=== PATIENT | male | born 1970 | race Caucasian/White ===

== ENCOUNTER → 2017-04-03 | Outpatient (CLI) | payer OTHER ==
[~2017-04-03] VITALS: Ht 172.7 cm; Wt 83.9 kg
[~2017-04-03] MED LIST: ACYCLOVIR 400400 MG PO; MEDROLDOSEPACK PO; NOHOMEMEDICATIONS PO; NORFLEX100 MG PO; ZANAFLEX4 MG PO
--- NOTE | ~2017-04-03 | HPC ---
[facility] [address] [place] [address] PAIN MANAGEMENT CONSULTATION Name: SPENCER CUELLAR Room #: REG [facility].#: [id number] Admission: 04/03/17 Attend Phys: Artur Matson DO Discharge: Date of : 70 Report #: [id number] THIS REPORT FOR: //name// CC: Cary Matson DATE OF SERVICE: 04/03/2017 REFERRING PHYSICIAN: Cary Roberts MD CHIEF COMPLAINT: Low back pain, left lower extremity pain and paresthesias. HISTORY OF PRESENT ILLNESS: As you know, the patient is a very pleasant 46-year-old male with longstanding history of low back pain, left lower extremity pain and paresthesias. The patient indicates pain began spontaneously in November 2016. He denies injury or trauma that may have led to symptoms. He has had previous low back symptoms, but this typically resolved in 3 days, pain continued to worsen and then began to experience radiation down the left leg all the way to the foot. He has sought evaluation through his primary care physician, Dr. Cary Roberts, ultimately be sent for physical therapy, he has done one month physical therapy, but yet has noted only minor improvement in symptoms. The patient did received Medrol Dosepak for suspected lumbar radiculopathy and this did improve the patient's symptoms quite rapidly. He continues to experience pain and ultimately underwent MRI of the lumbar spine, which shows changes at the L5-S1 level significant enough that he was referred to our clinic to discuss treatment options. The patient indicates pain is periodic, momentary and intermittent, describes pain as burning, shooting, aching, numbness and tingling, places current pain score at 1-2/10, daily average of 2/10, worst pain has been is 9/10. The patient states that standing from a seated position, lying down, repositioning, sneezing, coughing or lifting exacerbates symptoms, lying down and repositioning is the only thing he has found to improve pain other than the Medrol Dosepak. He has been referred to our clinic to discuss options for treatments for suspected lumbar radiculopathy. PAST MEDICAL HISTORY: None. PAST SURGICAL HISTORY: None. SOCIAL HISTORY: The patient denies tobacco, IV or illicit drug use, admits to approximately 6 alcoholic beverages per week. He is a software program manager, he is working, not receiving workmen's compensation nor is he trying to obtain disability benefits. He is not in litigation in regards to his pain. He is unaccompanied today. REVIEW OF SYSTEMS: Positive for decreased appetite, night sweats, low back [address] [address] PAIN MANAGEMENT CONSULTATION Name: SPENCER CUELLAR [id number] Admission: 04/03/17 Attend Phys: Artur Matson DO Discharge: Date of : 70 Report #: [id number] pain, left lower extremity pain and paresthesias. All other review of systems negative per 12-point review of systems other than those listed in history of present illness. PAIN IMPACT SCORE: 15/70 indicating mild interference of daily activities secondary to pain. ALLERGIES: No known drug allergies. CURRENT MEDICATIONS: None. IMAGING: MRI lumbar spine obtained on 03/07/2017, shows L1-L2, L2-L3, and L3-L4 unremarkable. No significant central disk bulge, no central canal stenosis, no neural foraminal stenosis. L4-L5 shows disk bulge, central disk protrusion causing ventral indentation of the thecal sac in conjunction with facet hypertrophy/ligamentum flavum hypertrophy causing [id number] central canal stenosis. L5-S1, disk bulge, left paracentral disk extrusion causing compression and displacement of the left S1 nerve root, extending adjacent to the proximal left neural foramen with mild foraminal narrowing, extruded disk fragment measures 1.2 cm in diameter, left anterior lateral distortion of the thecal sac is noted. PHYSICAL EXAMINATION: VITAL SIGNS: Blood pressure 128/92, pulse 90, respiratory rate 16 and unlabored, the patient is 100% on room air, height 5 feet 8 inches tall, weight 185 pounds, and BMI calculated 28.1. GENERAL: Well-developed, well-nourished, well-hydrated 46-year-old male, appearing his stated age, he is placing current pain score at 1-2/10. HEENT: Normocephalic, atraumatic. Pupils are equal, round, and reactive to light. Extraocular muscles are intact. Sclerae are nonicteric without injection. NEUROLOGIC: Cranial nerves 2-12 are grossly intact. Speech is fluent. The patient deemed a good historian. LUNGS: Clear. No wheeze, rhonchi, or rales. CARDIOVASCULAR: Regular. No appreciable gallop or rub. ABDOMEN: Soft, nontender, and nondistended. Normoactive bowel sounds. EXTREMITIES: Show no clubbing, no cyanosis, and no edema. MUSCULOSKELETAL: Lower extremity strength appears equal and symmetrical 5/5, muscle bulk and tone equal and symmetrical in lower extremities. Seated straight leg raising negative. Supine straight leg raising positive on the left with S1 distribution. Ankle clonus negative. Babinski is negative. Deep tendon reflexes are symmetrical at patella and Achilles. Gait mildly antalgic favoring left lower extremity over right. Lumbar provocation testing causes mild increase in axial back pain, no radiation of symptoms. ASSESSMENT: [facility] [address] [place] [address] PAIN MANAGEMENT CONSULTATION Name: SPENCER CUELLAR Room #: REG [facility].#: [id number] Admission: 04/03/17 Attend Phys: Artur Matson DO Discharge: Date of : 70 Report #: [id number] 1. Symptomatic lumbar radiculopathy. 2. Displacement of lumbar intervertebral disk with radiculopathy. 3. Lumbosacral spondylosis with radiculopathy. 4. Spinal stenosis of lumbar spine. 5. Degeneration of lumbar spine. 6. Chronic intractable pain. PLAN: 1. Based on today's physical exam, history the patient has provided, the description the patient uses in regards to pain as well as location of symptoms and the findings on MRI, the likely source of the patient's pain is a lumbar radiculopathy. The patient displays S1 left-sided dermatomal distribution of pain today during physical exam. We discussed with the patient treatment options for lumbar radiculopathy secondary to the findings of the MRI at L5-S1 level with the extruded disk causing lateral recess stenosis. We discussed the following with the patient the treatment options that are available. The patient and I did discuss physical therapy, stretching exercises, core strengthening as a treatment option, the patient has been involved in physical therapy for nearly a month and is noticing some improvement, but no longstanding efficacy. We can continue this as an option for treatment. We discussed medication therapy with the addition of a neuropathic pain medication and consistent nonsteroidal anti-inflammatory. We discussed lumbar epidural injections for which the patient was referred to our clinic, spinal cord stimulator therapy and surgical options. After reviewing the risks and benefits of all the proposed treatment options, the patient requested a lumbar epidural injection under fluoroscopic guidance. 2. The patient was advised that third republican payer restrictions require that authorization be obtained before the patient could undergo the first in a series of epidural injections. The patient was advised this will take anywhere from 4-7 working days, we will begin the process immediately and we will contact the patient once preauthorization has been obtained for the patient to undergo epidural injection per the primary care's request. The patient was advised once authorization has been obtained, we will then contact the patient to schedule him back for the next or first available appointment for the patient to undergo epidural injection. 3. No medication changes were made at today's visit. The patient will continue current medical therapy as previously prescribed. 4. We will see the patient back in followup visit once we have achieved precertification to undergo epidural injection under fluoroscopic guidance. 5. We wish to thank Dr. Roberts for the referral of this patient to our clinic. We will keep you apprised of his response to treatment [place] [address] PAIN MANAGEMENT CONSULTATION Name: SPENCER CUELLAR Room #: REG [facility]#: [id number] Admission: 04/03/17 Attend Phys: Artur Matson DO Discharge: Date of : 70 Report #: [id number] lumbar radicular symptoms. Again, we wish to thank you for the opportunity to see the patient in consultation. <ELECTRONICALLY SIGNED> By: Artur Matson DO 04/04/17 [id number] Artur Matson DO /nt
[2017-04-03 08:58] VITALS: BP 128/92
== END | disposition home or self-care (01) ==
LOC: PAIN 07:10
DX: M51.16 Intervertebral disc disorders with radiculopathy, lumbar region (principal); M48.06 Spinal stenosis, lumbar region; M47.27 Other spondylosis with radiculopathy, lumbosacral region; G89.29 Other chronic pain

== ENCOUNTER → 2017-04-10 | Outpatient (CLI) | payer OTHER ==
[~2017-04-10] VITALS: Ht 172.7 cm; Wt 82.7 kg
--- NOTE | ~2017-04-10 | HPC ---
[facility] [address] [place] [address] PAIN MANAGEMENT CONSULTATION Name: SPENCER CUELLAR Room #: REG [facility].#: [id number] Admission: 04/10/17 Attend Phys: Artur Matson DO Discharge: Date of : 70 Report #: [id number] THIS REPORT FOR: //name// CC: Cary Matson DATE OF SERVICE: 04/10/2017 REFERRING PHYSICIAN: Cary Roberts MD CHIEF COMPLAINT: Low back pain, left lower extremity pain and paresthesias. HISTORY OF PRESENT ILLNESS: As you know, the patient is a very pleasant 46-year-old male with longstanding history of low back pain, left lower extremity pain and paresthesias, the patient indicates pain began in November 2016, denies injury or trauma that may have led to symptom development. The patient trialed conservative medical therapy, unfortunately failed from a standpoint of improvement, he was subsequently referred to our clinic. We addressed his findings of his imaging study and how it correlates to his ongoing symptoms, we attempted a preauthorization for epidural injection. We have received this preauthorization and he returns today to undergo the procedure itself. He states pain level of 3/10, states his pain is sharp, aching, burning, numbness, and tingling and exacerbated with standing, walking and bending, improves with heat, position and medications. He returns today for the first in a series of epidural injections. ALLERGIES: No known drug allergies. CURRENT MEDICATIONS: None. SOCIAL HISTORY: The patient denies tobacco, IV or illicit drug use, admits to approximately 6 alcoholic beverages per week. 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 PHYSICAL EXAMINATION: VITAL SIGNS: Blood pressure 141/92, pulse 97, respiratory rate 12 and unlabored, the patient is 99% on room air, height 5 feet 8 inches tall, weight 182.4 pounds, and BMI calculated 27.7. GENERAL: Well-developed, well-nourished, well-hydrated 46-year-old male, appearing stated age, placing current pain score 3/10. HEENT: Normocephalic, atraumatic. Pupils are equal, round, and reactive to light. EXTREMITIES: Show no clubbing, no cyanosis, and no edema. MUSCULOSKELETAL: Seated straight leg raising negative. Supine straight leg raising positive on the left. Linda's test negative. [facility] [address] [place] [address] PAIN MANAGEMENT CONSULTATION Name: SPENCER CUELLAR Room #: REG CLI [facility]#: [id number] Admission: 04/10/17 Attend Phys: Artur Matson DO Discharge: Date of : 70 Report #: [id number] positive for axial low back pain. ASSESSMENT: 1. Symptomatic lumbar radiculopathy. 2. Displacement of lumbar intervertebral disk with radiculopathy. 3. Lumbosacral spondylosis with radiculopathy. 4. Spinal stenosis of lumbar spine. 5. Degeneration of lumbar spine. 6. Chronic intractable pain. PLAN: 1. The patient returns today in followup visit having received precertification to undergo epidural injection under fluoroscopic guidance. The patient and I did discuss the risks and benefits. These risks include, but are not necessarily limited to bleeding, bruising, infection, worsening of pain, no relief of pain, also risk of temporary or permanent muscle weakness, temporary or permanent nerve damage, possible paralysis and , the patient states understood and wished to proceed. 2. No medication management changes were made at today's visit, the patient will continue current medical therapy as previously prescribed. 3. We will see the patient back in followup visit for possible next in the series of epidural injections in 4 weeks. PROCEDURE NOTE DESCRIPTION OF PROCEDURE: L5-S1 left paramedian epidural steroid injection under fluoroscopic guidance. This is the first procedure of the first series that the patient is undergoing. After obtaining written consent, the patient was taken back to the fluoroscopy suite, placed in a prone position with pillow under the abdomen to decrease lumbar lordosis. The skin overlying the lumbosacral area was then prepped and draped in aseptic fashion. The L5-S1 vertebral interspace was then identified by AP fluoroscopy. The skin and subcutaneous tissue overlying the target site of injection was anesthetized with 3 mL 1% lidocaine. A 20-gauge 3-1/2-inch Tuohy needle was then advanced under fluoroscopic guidance towards the epidural space using a left paramedian approach. The epidural space was identified using loss of resistance to air technique. After negative aspiration for heme or cerebrospinal fluid, a total of 1 mL of Omnipaque was injected. A lumbar epidurogram was confirmed using both AP and lateral fluoroscopy. After negative aspiration for heme or cerebrospinal fluid, 5 mL of a solution containing 2 mL 40 mg per mL, 80 mg total triamcinolone was injected in increments. Contrast spread was noted posterior epidural space. The needle was then retracted approximately half way and needle tract flushed with 1 mL of [address] [address] PAIN MANAGEMENT CONSULTATION Name: SPENCER CUELLAR Room #: REG [facility].#: [id number] Admission: 04/10/17 Attend Phys: Artur Matson DO Discharge: Date of : 70 Report #: [id number] 1% lidocaine. Needle was then removed. There were no apparent sensory or motor deficits in the lower extremity following the procedure. A sterile bandage was placed over the injection site. The heart rate, pulse, oximetry and blood pressure were continuously monitored after the procedure. There were no apparent complications. The patient tolerated the procedure well and was carefully escorted to the recovery room in stable condition. There were no apparent complications. After meeting discharge criteria, the patient was then discharged home. By: [id number] Artur Matson DO /nt
[2017-04-10 08:15] VITALS: BP 141/92
== END | disposition home or self-care (01) ==
LOC: PAIN 07:10
DX: M51.16 Intervertebral disc disorders with radiculopathy, lumbar region (principal); M48.061 Spinal stenosis, lumbar region without neurogenic claudication; M47.27 Other spondylosis with radiculopathy, lumbosacral region; G89.29 Other chronic pain

== ENCOUNTER → 2017-05-08 | Outpatient (CLI) | payer OTHER ==
[~2017-05-08] VITALS: Ht 172.7 cm; Wt 83.0 kg
--- NOTE | ~2017-05-08 | HPC ---
[facility] [address] [place] [address] PAIN MANAGEMENT CONSULTATION Name: SPENCER CUELLAR [facility] [id number] Admission: 05/08/17 Attend Phys: Artur Matson DO Discharge: Date of : 70 Report #: [id number] THIS REPORT FOR: //name// CC: BRITTNEY Matson DATE OF SERVICE: 05/08/2017 CHIEF COMPLAINT: Low back pain, left lower extremity pain and paresthesias. HISTORY OF PRESENT ILLNESS: As you know, the patient is a very pleasant 46-year-old male who returns today in followup visit to undergo the second in series of epidural injections. He is now placing pain score 1/10. He reports an improvement in symptoms of greater than 80% with previous epidural injection. We have received precertification for the patient to undergo the next in the series of epidural injections to address his ongoing radicular symptoms. He is pleased with response to this initial injection and hopeful to see improvement again with this next injection. He denies new injury, new trauma that may have led to progression of symptoms. ALLERGIES: No known drug allergies. CURRENT MEDICATIONS: None. SOCIAL HISTORY: The patient denies tobacco, IV or illicit drug use. Admits to approximately 6 alcoholic beverages per week. He is currently employed as a robotics software engineer, working, not receiving workmen's compensation, unaccompanied today. IMAGING: No new imaging available. PHYSICAL EXAMINATION: VITAL SIGNS: Blood pressure 116/83, pulse 84, respiratory rate 16 and unlabored. The patient is 100% on room air. Height 5 feet 8 inches tall, weight 183 pounds, BMI calculated 27.8. GENERAL: Well-developed, well-nourished, well-hydrated 46-year-old male appearing stated age, placing current pain score 1/10. HEENT: Normocephalic, atraumatic. Pupils equal, round, reactive to light. EXTREMITIES: Show no clubbing, no cyanosis, no edema. MUSCULOSKELETAL: Seated straight leg raising negative. Supine straight leg raising positive on the left. KASSANDRA test negative. Modified [facility] positive for axial low back pain. Gait normal, stance normal. Ankle clonus negative. Babinski is negative. Muscle bulk and tone equal and symmetrical in lower extremities. [address] [address] PAIN MANAGEMENT CONSULTATION Name: SPENCER CUELLAR JEAN Room #: REG [facility].#: [id number] Admission: 05/08/17 Attend Phys: Artur Matson DO Discharge: Date of : 70 Report #: [id number] ASSESSMENT: 1. Symptomatic lumbar radiculopathy. 2. Spinal stenosis of lumbar spine. 3. Displacement of lumbar intervertebral disk with radiculopathy. 4. Lumbosacral spondylosis with radiculopathy. 5. Degeneration of lumbar spine. 6. Chronic intractable pain. PLAN: 1. The patient returns today in followup visit having received precertification to undergo the next in a series of epidural injections under fluoroscopic guidance. We have discussed with the patient the risks and the benefits of this requested epidural injection, he states he understood and wished to proceed. 2. No medication changes were made at today's visit, the patient to continue current medical therapy as previously prescribed. 3. The patient to return to our clinic on an as needed basis for the next in a series of epidural injections. PROCEDURE NOTE DESCRIPTION OF PROCEDURE: L5-S1 left paramedian epidural steroid injection under fluoroscopic guidance. After obtaining written consent, the patient was taken back to fluoroscopy suite, placed in prone position with pillow under abdomen to decrease lumbar lordosis. Skin overlying lumbosacral area was then prepped and draped in aseptic fashion. Lumbar intervertebral spaces were identified by AP fluoroscopy. Skin and subcutaneous tissue overlying target site of injection was anesthetized with 3 mL of 1% lidocaine. A 20-gauge 3-1/2 inch Tuohy needle advanced under fluoroscopic guidance towards the epidural space using left paramedian approach. Epidural space identified using loss of resistance to air technique. After negative aspiration for heme or cerebrospinal fluid, 1 mL of Omnipaque was injected. Lumbar epidurogram was confirmed using both AP and lateral fluoroscopy. After negative aspiration for heme or cerebrospinal fluid, 5 mL of a solution containing 2 mL 40 mg per mL, 80 mg total triamcinolone, 3 mL lidocaine 1% injected slowly. Needle retracted senior living, needle tract flushed with 3 mL 1% lidocaine. Needle then removed. Sterile bandage was placed over injection site. No new motor deficits present in lower extremity following the procedure. The patient tolerated the procedure well, carefully escorted to the recovery [address] [address] PAIN MANAGEMENT CONSULTATION Name: SPENCER CUELLAR Room #: REG CL [facility]#: [id number] Admission: 05/08/17 Attend Phys: Artur Matson DO Discharge: Date of : 70 Report #: [id number] room in stable condition. No apparent complication. After meeting discharge criteria, the patient discharged home. By: [id number] Artur Matson DO /nt
[2017-05-08 08:10] VITALS: BP 116/83
== END | disposition home or self-care (01) ==
LOC: PAIN 05:33
DX: M51.16 Intervertebral disc disorders with radiculopathy, lumbar region (principal); M48.061 Spinal stenosis, lumbar region without neurogenic claudication; M47.27 Other spondylosis with radiculopathy, lumbosacral region; G89.29 Other chronic pain